=== PATIENT | male | born 1965 | race Hispanic/Latino ===

== ENCOUNTER 2022-03-06 17:05 | Outpatient (CLI) | payer BC | END 2022-03-06 17:06 | disposition home or self-care (01) | LOC: CSHLAB 17:05 → CSHRAD 17:05 → EDSTATUS 17:08 | PROVIDERS: ATTEND Family Medicine Sports Medicine | DX: M25.512 Pain in left shoulder (principal); M19.012 Primary osteoarthritis, left shoulder ==

== ENCOUNTER 2022-06-26 10:43 | Outpatient (CLI) | payer BC | END 2022-06-26 10:44 | disposition home or self-care (01) | LOC: CSHRAD 10:43 | PROVIDERS: ATTEND Family Medicine Sports Medicine | DX: M54.50 Low back pain, unspecified (principal); M47.816 Spondylosis without myelopathy or radiculopathy, lumbar region | CPT/HCPCS: 72100 ==

== ENCOUNTER 2022-08-01 15:32 | Outpatient (CLI) | payer BC | END 2022-08-01 15:33 | disposition home or self-care (01) | LOC: CSHCP 15:32 | PROVIDERS: ATTEND Internal Medicine Pulmonary Disease | DX: J30.9 Allergic rhinitis, unspecified (principal) | CPT/HCPCS: 94060; 94726; 94729; 94760 ==

== ENCOUNTER 2025-06-25 14:53 | Outpatient (CLI) | payer BC | END 2025-06-25 14:54 | disposition home or self-care (01) | LOC: CSHRAD 14:53 | PROVIDERS: ATTEND Family Medicine Sports Medicine | DX: M25.512 Pain in left shoulder (principal); M19.012 Primary osteoarthritis, left shoulder ==

== ENCOUNTER 2025-07-05 14:46 | Outpatient (CLI) | payer BC | END 2025-07-05 14:47 | disposition home or self-care (01) | LOC: CSHMRI 14:46 | PROVIDERS: ATTEND Family Medicine Sports Medicine | DX: M25.512 Pain in left shoulder (principal); S43.432A Superior glenoid labrum lesion of left shoulder, initial encounter; M67.412 Ganglion, left shoulder; M75.112 Incomplete rotator cuff tear or rupture of left shoulder, not specified as traumatic; M75.92 Shoulder lesion, unspecified, left shoulder ==